=== PATIENT | female | born 1970 | race Caucasian/White ===

== ENCOUNTER 2018-10-03 10:53 | Outpatient (CLI) | payer MEDICARE ==
[2018-10-03 19:39] LABS: BASOPHILS # (AUTO) 0.1 10^3/uL (0.0-0.1); BASOPHILS % (AUTO) 0.6 %; EOSINOPHILS # (AUTO) 0.1 10^3/uL (0.0-0.7); EOSINOPHILS % (AUTO) 0.8 %; HGB - HEMOGLOBIN 13.1 g/dL (12.0-16.0); LYMPHOCYTES # (AUTO) 2.5 10^3/uL (1.5-3.5); LYMPHOCYTES % (AUTO) 16.1 %; MEAN CORPUSCULAR HEMOGLOBIN 26.8 pg (27.0-31.0); MEAN CORPUSCULAR HGB CONC 31.7 g/dL (32.0-36.0); MEAN CORPUSCULAR VOLUME 84.6 fL (81.0-99.0); MEAN PLATELET VOLUME 8.3 fL (7.9-10.8); MONOCYTES % (AUTO) 6.5 %; PLT - PLATELET COUNT 356 10^3/uL (130-450); RED BLOOD COUNT 4.89 10^6/uL (4.20-5.40); RED CELL DISTRIBUTION WIDTH 16.2 % (12.0-15.0); WHITE BLOOD COUNT 15.8 x10^3/uL (4.8-10.8)
[2018-10-03 19:53] LABS: PLATELET ESTIMATE, MANUAL NORMAL (130-450,000) (NORMAL); PLATELET MORPHOLOGY NORMAL APPEARANCE (NORMAL)
[2018-10-03 19:54] LABS: RBC MORPHOLOGY (MULTIPLE) 1+ ANISOCYTOSIS (NORMAL)
[2018-10-03 19:58] LABS: ALBUMIN 4.7 g/dL (3.2-5.5); ALBUMIN/GLOBULIN RATIO 1.1 (1.0-2.2); BILIRUBIN,TOTAL 0.8 mg/dL (0.2-1.0); CALCIUM 9.7 mg/dL (8.5-10.3); CREATININE 0.9 mg/dL (0.4-1.0)
[2018-10-03 20:06] LABS: FERRITIN 123.3 ng/mL (11.0-306.8)
[2018-10-03 20:59] LABS: HB2 TOTAL 14.5 g/dL; HEMOGLOBIN A1C 0.5 g/dL; HEMOGLOBIN A1C % 5.3 % (4.6-6.2)
== END 2018-10-03 23:59 | disposition home or self-care (01) ==
LOC: LAB.WCP 10:53
PROVIDERS: ATTEND Physician Assistant
DX: Z00.00 Encounter for general adult medical examination without abnormal findings (principal); K51.90 Ulcerative colitis, unspecified, without complications; D64.9 Anemia, unspecified; D50.9 Iron deficiency anemia, unspecified
CPT/HCPCS: 36415; 80053; 82607; 82728; 82746; 83036; 83540; 84466; 85025

== ENCOUNTER 2018-10-31 08:00 | Outpatient (CLI) | payer MEDICARE, MEDICAID ==
[2018-10-31 18:42] LABS: BASOPHILS # (AUTO) 0.1 10^3/uL (0.0-0.1); BASOPHILS % (AUTO) 0.4 %; EOSINOPHILS # (AUTO) 0.1 10^3/uL (0.0-0.7); EOSINOPHILS % (AUTO) 0.4 %; HGB - HEMOGLOBIN 14.3 g/dL (12.0-16.0); LYMPHOCYTES # (AUTO) 2.2 10^3/uL (1.5-3.5); LYMPHOCYTES % (AUTO) 13.9 %; MEAN CORPUSCULAR HEMOGLOBIN 26.6 pg (27.0-31.0); MEAN CORPUSCULAR HGB CONC 31.7 g/dL (32.0-36.0); MEAN CORPUSCULAR VOLUME 83.9 fL (81.0-99.0); MEAN PLATELET VOLUME 7.8 fL (7.9-10.8); NEUTROPHILS # (AUTO) 12.8 10^3/uL (1.5-6.6); NEUTROPHILS % (AUTO) 79.3 %; PLT - PLATELET COUNT 425 10^3/uL (130-450); RED BLOOD COUNT 5.36 10^6/uL (4.20-5.40); RED CELL DISTRIBUTION WIDTH 15.6 % (12.0-15.0); WHITE BLOOD COUNT 16.1 x10^3/uL (4.8-10.8)
[2018-10-31 19:15] LABS: ALBUMIN 5.1 g/dL (3.2-5.5); ALBUMIN/GLOBULIN RATIO 1.2 (1.0-2.2); BILIRUBIN,TOTAL 0.7 mg/dL (0.2-1.0); CREATININE 1.1 mg/dL (0.4-1.0); TOTAL PROTEIN 9.3 g/dL (6.7-8.2)
== END 2018-10-31 23:59 | disposition home or self-care (01) ==
LOC: LAB.WCP 08:00
PROVIDERS: ATTEND Physician Assistant
DX: E87.6 Hypokalemia (principal); K92.1 Melena
CPT/HCPCS: 36415; 80053; 85025

== ENCOUNTER 2018-11-01 02:37 | Outpatient (CLI) | payer MEDICARE, MEDICAID | END 2018-11-01 02:38 | disposition critical access hospital (66) | LOC: EMS 02:37 | PROVIDERS: ATTEND Surgery | DX: R55 Syncope and collapse (principal); S09.90XA Unspecified injury of head, initial encounter; R11.2 Nausea with vomiting, unspecified; R19.7 Diarrhea, unspecified; W18.30XA Fall on same level, unspecified, initial encounter; Y92.003 Bedroom of unspecified non-institutional (private) residence as the place of occurrence of the external cause | CPT/HCPCS: A0425; A0427 ==

== ENCOUNTER 2018-11-01 02:53 | Observation (INO) | payer MEDICARE, MEDICAID ==
[2018-11-01] MEDS ORDERED: TETANUS/DIPHTHERIA/PERTUSSIS 0.5 ML SYRINGE IM ONE (03:04)
[2018-11-01] MEDS ORDERED: SODIUM CHLORIDE 0.9% IV STA (03:04)
[2018-11-01] MEDS ORDERED: ONDANSETRON 4 MG/2 ML VIAL IVP STA (03:18)
[2018-11-01 03:35] LABS: BASOPHILS # (AUTO) 0.1 10^3/uL (0.0-0.1); BASOPHILS % (AUTO) 0.5 %; EOSINOPHILS # (AUTO) 0.1 10^3/uL (0.0-0.7); EOSINOPHILS % (AUTO) 0.5 %; HGB - HEMOGLOBIN 11.8 g/dL (12.0-16.0); LYMPHOCYTES # (AUTO) 2.3 10^3/uL (1.5-3.5); LYMPHOCYTES % (AUTO) 18.9 %; MEAN CORPUSCULAR HEMOGLOBIN 27.2 pg (27.0-31.0); MEAN CORPUSCULAR VOLUME 82.4 fL (81.0-99.0); MEAN PLATELET VOLUME 7.3 fL (7.9-10.8); MONOCYTES # (AUTO) 1.2 10^3/uL (0.0-1.0); MONOCYTES % (AUTO) 10.3 %; NEUTROPHILS # (AUTO) 8.4 10^3/uL (1.5-6.6); NEUTROPHILS % (AUTO) 69.8 %; PLT - PLATELET COUNT 258 10^3/uL (130-450); RED BLOOD COUNT 4.33 10^6/uL (4.20-5.40); RED CELL DISTRIBUTION WIDTH 15.4 % (12.0-15.0)
[2018-11-01 03:46] LABS: ALBUMIN 4.1 g/dL (3.2-5.5); ALBUMIN/GLOBULIN RATIO 1.2 (1.0-2.2); BILIRUBIN,TOTAL 0.6 mg/dL (0.2-1.0); CALCIUM 8.6 mg/dL (8.5-10.3); CREATININE 1.8 mg/dL (0.4-1.0); TOTAL PROTEIN 7.5 g/dL (6.7-8.2)
[2018-11-01] MEDS ORDERED: IOPAMIDOL-300 100 ML VIAL ONE (03:54)
[2018-11-01 04:04] LABS: BILIRUBIN,URINE NEGATIVE (NEGATIVE); GLUCOSE, URINE (UA) NEGATIVE (NEGATIVE); KETONES,URINE (UA) NEGATIVE (NEGATIVE); LEUKOCYTE ESTERASE, URINE NEGATIVE (NEGATIVE); NITRITE,URINE NEGATIVE (NEGATIVE); OCCULT BLOOD,URINE TRACE-LYSE (NEGATIVE); PROTEIN,URINE 30 mg/dL (NEGATIVE); UROBILINOGEN,URINE 0.2 (NORMAL) E.U./dL (NORMAL)
[2018-11-01] MEDS ORDERED: POTASSIUM CHLORIDE 20 MEQ TABLET PO STA (04:13)
[2018-11-01] MEDS ORDERED: MAGNESIUM SULFATE 2 GRAM 2 GM/50 ML BAG IV ONE (04:14)
[2018-11-01 04:16] LABS: BACTERIA,URINE Moderate /HPF (None Seen); CLARITY,URINE SL. CLOUDY (CLEAR); SQUAMOUS EPITHELIAL CELL,UR MANY Squamous (<= Few)
[2018-11-01] MEDS ORDERED: SODIUM CHLORIDE 0.9% 1,000 ML IV ONE (04:37)
--- NOTE | 2018-11-01 04:51 | XRAY Report ---
Reason: sepsis Procedure Date: 11/01/2018 Accession Number: [id number] / [id number] Procedure: XR - Chest 1 View X-Ray CPT Code: 07584 FULL RESULT: EXAM: CHEST RADIOGRAPHY EXAM DATE: 11/01/2018 04:10 AM. CLINICAL HISTORY: Sepsis. COMPARISON: None. TECHNIQUE: 1 view. FINDINGS: Lungs/Pleura: No focal opacities evident. No pleural effusion. No pneumothorax. Mediastinum: Within exam limitations, the cardiomediastinal contour is normal. Other: Port-A-Cath is noted in the left with the tip in this. Vena cava. IMPRESSION: 1. No acute infiltrates. RADIA
--- NOTE | 2018-11-01 04:53 | CT Report ---
Reason: Abd pain, sepsis Procedure Date: 11/01/2018 Accession Number: [id number] / [id number] Procedure: CT - Abdomen/Pelvis WO CPT Code: FULL RESULT: EXAM: CT ABDOMEN AND PELVIS (CT KUB) EXAM DATE: 11/01/2018 04:36 AM. CLINICAL HISTORY: Abd pain, sepsis. COMPARISONS: None. TECHNIQUE: Routine axial helical CT imaging was performed through the abdomen and pelvis without IV contrast. Reconstructions: Coronal and sagittal. In accordance with CT protocol optimization, one or more of the following dose reduction techniques were utilized for this exam: automated exposure control, adjustment of mA and/or KV based on patient size, or use of iterative reconstructive technique. FINDINGS: Lung Bases: There are minimal interstitial infiltrative changes at the lung bases. Right Kidney/Ureter: No stones, hydronephrosis, or hydroureter. No perinephric fat stranding. Left Kidney/Ureter: No stones, hydronephrosis, or hydroureter. No perinephric fat stranding. Other Solid Organs: Noncontrast images of the solid organs are grossly unremarkable. Gallbladder/Bile Ducts: Resected Peritoneal Cavity: No free fluid, free air or scarlett adenopathy. Bowel is grossly unremarkable. Pelvic Organs: The bladder is decompressed. There are no inflammatory changes of the colon. Vasculature: Unremarkable. Other: None. IMPRESSION: 1. No evidence for fluid collections nor abscesses within the abdomen and pelvis. 2. Prior cholecystectomy. 3. Minimal interstitial infiltrative changes at the lung bases. RADIA
--- NOTE | 2018-11-01 04:53 | CT Report ---
Reason: Syncope w head lac Procedure Date: 11/01/2018 Accession Number: [id number] / [id number] Procedure: CT - HEAD WO CPT Code: FULL RESULT: EXAM: CT HEAD EXAM DATE: 11/01/2018 04:34 AM. CLINICAL HISTORY: Syncope. Fall with head laceration. COMPARISON: None. TECHNIQUE: Multiaxial CT images were obtained from the foramen magnum to the vertex. Reformats: Sagittal and coronal. IV contrast: None. In accordance with CT protocol optimization, one or more of the following dose reduction techniques were utilized for this exam: automated exposure control, adjustment of mA and/or KV based on patient size, or use of iterative reconstructive technique. FINDINGS: Parenchyma: No intraparenchymal hemorrhage. No evidence of mass, midline shift, or CT findings of infarction. Watts-white differentiation is distinct. Extraaxial Spaces: Normal for age. No subdural or epidural collections identified. Ventricles: Normal in size and position. Sinuses and Orbits: Imaged paranasal sinuses, orbits, and mastoids show no significant abnormality. Bones: No evidence of fracture or calvarial defect. Other: Skin yuliana over the left parietal convexity. IMPRESSION: No acute or focal intracranial abnormality. RADIA
--- NOTE | 2018-11-01 05:04 | ED Physician Documentation ---
PD HPI SYNCOPE - Stated complaint Stated Complaint: SYNCOPAL FALL/HEAD INJURY - Chief complaint Chief Complaint: Trauma Hd/Nk - History obtained from History obtained from: Patient - History of Present Illness Witnessed: Unwitnessed Timing - onset: How many hours ago (1) Duration: Seconds Preceding symptoms: Unknown Associated symptoms: No: Chest pain, Palpitations Contributing factors: Decreased PO intake, Other (diarrhea) Injury occurred: Head injury Pain level max: 2 Pain level now: 2 Severity Comments: mild Review of Systems Ten Systems: 10 systems reviewed and negative Constitutional: reports: Reviewed and negative Eyes: reports: Reviewed and negative Ears: reports: Reviewed and negative Nose: reports: Reviewed and negative Throat: reports: Reviewed and negative Cardiac: reports: Reviewed and negative Respiratory: reports: Reviewed and negative GI: reports: Diarrhea : reports: Reviewed and negative Skin: reports: Reviewed and negative Musculoskeletal: reports: Reviewed and negative Neurologic: reports: Syncope Psychiatric: reports: Reviewed and negative Endocrine: reports: Reviewed and negative Immunocompromised: reports: Reviewed and negative PD PAST MEDICAL HISTORY - Past Medical History Past Medical History: Yes Cardiovascular: High cholesterol, Other Respiratory: Asthma Neuro: Seizure disorder Endocrine/Autoimmune: None GI: None BUNDLE PERSON: None : None HEENT: None Psych: None Musculoskeletal: None Derm: None - Past Surgical History Past Surgical History: Yes General: Cholecystectomy Ortho: Other /BUNDLE PERSON: section, Hysterectomy - Present Medications Home Medications: Ambulatory Orders Medication Instructions Recorded Confirmed Allopurinol 11/01/18 Famotidine [Pepcid] 11/01/18 Levetiracetam [Keppra] 11/01/18 Pantoprazole Sodium [Protonix] 11/01/18 Prazosin [Minipress] 11/01/18 Rosuvastatin Calcium 11/01/18 predniSONE [Prednisone] 11/01/18 - Allergies Allergies/Adverse Reactions: Allergies Allergy/AdvReac Type Severity Reaction Status Date / Time ciprofloxacin [From Cipro] AdvReac Unknown Verified 11/01/18 03:07 duloxetine AdvReac Anaphylaxis Verified 11/01/18 03:07 pravastatin AdvReac Cramps Verified 11/01/18 03:07 Sulfa (Sulfonamide AdvReac Cramps Verified 11/01/18 03:07 Antibiotics) - Social History Does the pt smoke?: No Smoking Status: Never smoker Does the pt drink ETOH?: No Does the pt have substance abuse?: No - Family History Family history: reports: Other (Reviewed and not pertinent) - Immunizations Immunizations are current?: Yes - POLST Patient has POLST: No PD ED PE NORMAL - Vitals Vital signs reviewed: Yes - General General: Alert and oriented X 3, No acute distress - HEENT HEENT: PERRL - Neck Neck: Supple, no meningeal sign - Cardiac Cardiac: RRR, No murmur - Respiratory Respiratory: Clear bilaterally - Abdomen Abdomen: Normal bowel sounds, Soft, Non tender, Non distended - Derm Derm: Warm and dry - Extremities Extremities: No deformity - Neuro Neuro: Alert and oriented X 3 - Psych Psych: Normal mood, Normal affect Results - Vitals Vitals: Vital Signs - 24 hr 11/01/18 11/01/18 11/01/18 03:00 03:30 03:46 Temperature 35.5 C L Heart Rate 87 92 91 Respiratory 16 16 17 Rate Blood Pressure 83/41 L 56/43 L 79/51 L O2 Saturation 97 98 95 11/01/18 11/01/18 11/01/18 03:53 04:40 05:03 Temperature Heart Rate 84 77 78 Respiratory Rate Blood Pressure 78/52 L 92/50 L 84/60 L O2 Saturation 96 100 100 Oxygen O2 Source Nasal cannula Oxygen Flow Rate 2 - Labs Labs: Laboratory Tests 11/01/18 11/01/18 11/01/18 03:23 03:25 03:25 WBC 12.0 H RBC 4.33 Hgb 11.8 L Hct 35.7 L MCV 82.4 MCH 27.2 MCHC 33.0 RDW 15.4 H Plt Count 258 MPV 7.3 L Neut # (Auto) 8.4 H Lymph # (Auto) 2.3 [place] # (Auto) 1.2 H Eos # (Auto) 0.1 Baso # (Auto) 0.1 Absolute Nucleated RBC 0.00 Nucleated RBC % 0.0 Sodium 135 Potassium 3.2 L Chloride 99 L Carbon Dioxide 24 Anion Gap 12.0 BUN 26 H Creatinine 1.8 H Estimated GFR (MDRD) 30 L Glucose 122 H Lactic Acid 1.4 Calcium 8.6 Total Bilirubin 0.6 AST 24 ALT 13 Alkaline Phosphatase 62 Total Protein 7.5 Albumin 4.1 Globulin 3.4 Albumin/Globulin Ratio 1.2 Lipase 47 Urine Color Urine Clarity Urine pH Ur Specific [place] Urine Protein Urine Glucose (UA) Urine Ketones Urine Occult Blood Urine Nitrite Urine Bilirubin Urine Urobilinogen Ur Leukocyte Esterase Urine RBC Urine WBC Ur Squamous Epith Cells Urine Bacteria Urine Culture Comments Influenza A (Rapid) Influenza B (Rapid) 11/01/18 11/01/18 03:35 03:40 WBC RBC Hgb Hct MCV MCH MCHC RDW Plt Count MPV Neut # (Auto) Lymph # (Auto) [place] # (Auto) Eos # (Auto) Baso # (Auto) Absolute Nucleated RBC Nucleated RBC % Sodium Potassium Chloride Carbon Dioxide Anion Gap BUN Creatinine Estimated GFR (MDRD) Glucose Lactic Acid Calcium Total Bilirubin AST ALT Alkaline Phosphatase Total Protein Albumin Globulin Albumin/Globulin Ratio Lipase Urine Color YELLOW Urine Clarity SL. CLOUDY Urine pH 6.0 Ur Specific [place] >=1.030 H Urine Protein 30 H Urine Glucose (UA) NEGATIVE Urine Ketones NEGATIVE Urine Occult Blood TRACE-LYSE Urine Nitrite NEGATIVE Urine Bilirubin NEGATIVE Urine Urobilinogen 0.2 (NORMAL) Ur Leukocyte Esterase NEGATIVE Urine RBC 11-25 H Urine WBC 0-3 Ur Squamous Epith Cells MANY Squamous H Urine Bacteria Moderate H Urine Culture Comments NOT INDICATED Influenza A (Rapid) Negative Influenza B (Rapid) Negative - Rads (name of study) CT HEAd Radiology: Final report received, Other (WNL) CT ABD PELVIS Radiology: Final report received, Other (WNL) Chest Radiology: Final report received, Other (WNL) Procedures - Laceration (location) Scalp Length in cm: 2 Wound type: Linear Neurovascular status: Sensory intact, Vascular intact Tendon involvement: Tendon intact Wound Preparation: Irrigated copiously NS Skin layer closure: [place] Other: Patient tolerated well Complexity: Simple PD MEDICAL DECISION MAKING - ED course Complexity details: reviewed results, re-evaluated patient, considered differential, d/w patient ED course: 48-year-old female with 1-2 days of diarrhea presents after a syncopal episode. Patient was orthostatic and hypotensive which improved with IV fluid resuscitation. Kidney function was twice normal. CT had and abdomen unremarkable. Patient admitted for acute kidney injury. Departure - Departure Disposition: ED Place in Observation Clinical Impression: Acute kidney injury, Dehydration Syncope Qualifiers: Syncope type: unspecified Qualified Code(s): R55 - Syncope and collapse
--- NOTE | 2018-11-01 05:13 | HISTORY & PHYSICAL EXAMINATION ---
Chief Complaint - Chief Complaint Chief Complaint: syncope and collapse Stroke/TIA/Neuro Template - Admitted From Admitted from: ED - History Obtained From Records Reviewed: RN notes reviewed History obtained from: Patient Exam limitations: No limitations - History of Present Illness HPI Comment/Other: Pleasant 48 y/o female with hx a seizure disorder, Adrenal insufficiency sec to chronic steroid use, crohn's disease, obesity, CKD stage 2, asthma who p/w diarrhea for 2 days with associated weakness, had a syncopal event with laceration to back of her head while walking back from bathroom at home. Patient states that she has been having 3 times to 4 times per day loose watery stools nonbloody for the past 2 days which she attributes to her Crohn's flare which usually happens 1-2 times per month. Patient has been on chronic steroids since July 2018 and was on a maintenance dose of 5 mg p.o. daily. Patient states that her normal blood pressure ranges systolic in the 90s to 100s. Neuroimaging is neg, CT abd/pelvis shows no acute pathology, labs revealed hypokalemia and PORTER with severe hypotension on presentation as low as 56/43. Cr 1.8 with a baseline of 0.9-1.0, K 3.2, Flu was neg., UA showed 11-25 rbc's,mod bacteria, squamous cells with evidence of contamination. Mild anemia NC/NC noted without any hx of abdominal pain, hematemesis, hematochezia, dysuria, flank pain, joint swelling, or MP rash. Patient responded to IVF resuscitation with improved BP's. Laceration to back of head was repaired in ED. Patient states that she was hospitalized in [facility] on 07/26 for adrenal insufficiency and spent 5 days in the hospital. In addition patient was placed on Keppra for her seizure disorder however never diagnosed with epilepsy her primary neurologist who believes she last saw in [place] but now has moved to the [place] and has no establish care. Patient does have a Port-A-Cath due to poor vascular IV access as she has been hospitalized for Adrenal insufficiency as well as C katelynn's flares. In addition patient did have history of bowel perforation with sepsis in 2010. PMH/PSH - Past Medical History Cardiovascular: positive: High cholesterol, Other Respiratory: positive: Asthma Neuro: positive: Seizure disorder Endocrine/Autoimmune: positive: None GI: positive: None COMPLIANCE REPRESENTATIVE DEALER: positive: None : positive: None HEENT: positive: None Psych: positive: None Musculoskeletal: positive: None Derm: positive: None MRSA Hx?: No - Past Surgical History General: positive: Cholecystectomy Ortho: positive: Other /COMPLIANCE REPRESENTATIVE DEALER: positive: section, Hysterectomy Social & Family Hx - Social History Does the pt smoke?: No Smoking Status: Never smoker Does the pt drink ETOH?: No Does the pt have substance abuse?: No - POLST Patient has POLST: No Meds/Allgy - Home Medications Home Medications: Ambulatory Orders Medication Instructions Recorded Confirmed Allopurinol 11/01/18 Famotidine [Pepcid] 11/01/18 Levetiracetam [Keppra] 11/01/18 Pantoprazole Sodium [Protonix] 11/01/18 Prazosin [Minipress] 11/01/18 Rosuvastatin Calcium 11/01/18 predniSONE [Prednisone] 11/01/18 - Allergies Allergies/Adverse Reactions: Allergies Allergy/AdvReac Type Severity Reaction Status Date / Time ciprofloxacin [From Cipro] AdvReac Unknown Verified 11/01/18 03:07 duloxetine AdvReac Anaphylaxis Verified 11/01/18 03:07 pravastatin AdvReac Cramps Verified 11/01/18 03:07 Sulfa (Sulfonamide AdvReac Cramps Verified 11/01/18 03:07 Antibiotics) Review of Systems - All Other Systems All Other Systems: reports: Reviewed and negative Prior Level of Functionality: Patient is independent with home ADL's Exam - Vital Signs Vital Signs: Vital Signs x48h Temp Pulse Resp BP Pulse Ox 11/01/18 05:03 78 84/60 L 100 11/01/18 04:40 77 92/50 L 100 11/01/18 03:53 84 78/52 L 96 11/01/18 03:46 91 17 79/51 L 95 11/01/18 03:30 92 16 56/43 L 98 11/01/18 03:00 35.5 C L 87 16 83/41 L 97 - Physical Exam General Appearance: positive: No acute distress, Alert, Other (Patient is chronically ill-appearing, with schwab facies.) Eyes Bilateral: positive: Normal inspection, PERRL, EOMI, Conjunctivae nml ENT: positive: ENT inspection nml, Pharynx nml, Dry mucous membranes. negative: Oral lesions Neck: positive: Nml inspection, Thyroid nml, No JVD, Trachea midline. negative: Thyromegaly Respiratory: positive: Chest non-tender, No respiratory distress, Breath sounds nml Cardiovascular: positive: Regular rate & rhythm, No murmur, No gallop. negative: Irregularly irregular, JVD present Peripheral Pulses: positive: 2+ Abdomen: positive: Non-tender, No organomegaly, Nml bowel sounds, No distention. negative: Tenderness Back: positive: Nml inspection Skin: positive: Color nml, No rash, Warm Extremities: positive: Non-tender, Full ROM, Nml appearance Neurologic/Psychiatric: positive: Oriented x3, CN's nml (2-12), Weakness Results - Lab Results Lab results reviewed: Yes Fish Bones: 11/01/18 03:25 11/01/18 03:23 Other Lab Results: Lab Results x24hrs 11/01/18 11/01/18 11/01/18 Range/Units 03:40 03:35 03:25 WBC 12.0 H (4.8-10.8) x10^3/uL RBC 4.33 (4.20-5.40) 10^6/uL Hgb 11.8 L (12.0-16.0) g/dL Hct 35.7 L (37.0-47.0) % MCV 82.4 (81.0-99.0) fL MCH 27.2 (27.0-31.0) pg MCHC 33.0 (32.0-36.0) g/dL RDW 15.4 H (12.0-15.0) % Plt Count 258 (130-450) 10^3/uL MPV 7.3 L (7.9-10.8) fL Neut # (Auto) 8.4 H (1.5-6.6) 10^3/uL Lymph # (Auto) 2.3 (1.5-3.5) 10^3/uL [place] # (Auto) 1.2 H (0.0-1.0) 10^3/uL Eos # (Auto) 0.1 (0.0-0.7) 10^3/uL Baso # (Auto) 0.1 (0.0-0.1) 10^3/uL Absolute Nucleated RBC 0.00 x10^3/uL Nucleated RBC % 0.0 /100WBC Sodium (135-145) mmol/L Potassium (3.5-5.0) mmol/L Chloride (101-111) mmol/L Carbon Dioxide (21-32) mmol/L Anion Gap (6-13) BUN (6-20) mg/dL Creatinine (0.4-1.0) mg/dL Estimated GFR (MDRD) (>89) Glucose (70-100) mg/dL Lactic Acid (0.5-2.2) mmol/L Calcium (8.5-10.3) mg/dL Total Bilirubin (0.2-1.0) mg/dL AST (10-42) IU/L ALT (10-60) IU/L Alkaline Phosphatase (42-121) IU/L Total Protein (6.7-8.2) g/dL Albumin (3.2-5.5) g/dL Globulin (2.1-4.2) g/dL Albumin/Globulin Ratio (1.0-2.2) Lipase (22-51) U/L Urine Color YELLOW Urine Clarity SL. CLOUDY (CLEAR) Urine pH 6.0 (5.0-7.5) PH Ur Specific [place] >=1.030 H (1.002-1.030) Urine Protein 30 H (NEGATIVE) mg/dL Urine Glucose (UA) NEGATIVE (NEGATIVE) mg/dL Urine Ketones NEGATIVE (NEGATIVE) mg/dL Urine Occult Blood TRACE-LYSE (NEGATIVE) Urine Nitrite NEGATIVE (NEGATIVE) Urine Bilirubin NEGATIVE (NEGATIVE) Urine Urobilinogen 0.2 (NORMAL) (NORMAL) E.U./dL Ur Leukocyte Esterase NEGATIVE (NEGATIVE) Urine RBC 11-25 H (0-5) /HPF Urine WBC 0-3 (0-5) /HPF Ur Squamous Epith Cells MANY Squamous H (<= Few) Urine Bacteria Moderate H (None Seen) /HPF Urine Culture Comments NOT INDICATED Influenza A (Rapid) Negative (Negative) Influenza B (Rapid) Negative (Negative) 11/01/18 11/01/18 Range/Units 03:25 03:23 WBC (4.8-10.8) x10^3/uL RBC (4.20-5.40) 10^6/uL Hgb (12.0-16.0) g/dL Hct (37.0-47.0) % MCV (81.0-99.0) fL MCH (27.0-31.0) pg MCHC (32.0-36.0) g/dL RDW (12.0-15.0) % Plt Count (130-450) 10^3/uL MPV (7.9-10.8) fL Neut # (Auto) (1.5-6.6) 10^3/uL Lymph # (Auto) (1.5-3.5) 10^3/uL [place] # (Auto) (0.0-1.0) 10^3/uL Eos # (Auto) (0.0-0.7) 10^3/uL Baso # (Auto) (0.0-0.1) 10^3/uL Absolute Nucleated RBC x10^3/uL Nucleated RBC % /100WBC Sodium 135 (135-145) mmol/L Potassium 3.2 L (3.5-5.0) mmol/L Chloride 99 L (101-111) mmol/L Carbon Dioxide 24 (21-32) mmol/L Anion Gap 12.0 (6-13) BUN 26 H (6-20) mg/dL Creatinine 1.8 H (0.4-1.0) mg/dL Estimated GFR (MDRD) 30 L (>89) Glucose 122 H (70-100) mg/dL Lactic Acid 1.4 (0.5-2.2) mmol/L Calcium 8.6 (8.5-10.3) mg/dL Total Bilirubin 0.6 (0.2-1.0) mg/dL AST 24 (10-42) IU/L ALT 13 (10-60) IU/L Alkaline Phosphatase 62 (42-121) IU/L Total Protein 7.5 (6.7-8.2) g/dL Albumin 4.1 (3.2-5.5) g/dL Globulin 3.4 (2.1-4.2) g/dL Albumin/Globulin Ratio 1.2 (1.0-2.2) Lipase 47 (22-51) U/L Urine Color Urine Clarity (CLEAR) Urine pH (5.0-7.5) PH Ur Specific [place] (1.002-1.030) Urine Protein (NEGATIVE) mg/dL Urine Glucose (UA) (NEGATIVE) mg/dL Urine Ketones (NEGATIVE) mg/dL Urine Occult Blood (NEGATIVE) Urine Nitrite (NEGATIVE) Urine Bilirubin (NEGATIVE) Urine Urobilinogen (NORMAL) E.U./dL Ur Leukocyte Esterase (NEGATIVE) Urine RBC (0-5) /HPF Urine WBC (0-5) /HPF Ur Squamous Epith Cells (<= Few) Urine Bacteria (None Seen) /HPF Urine Culture Comments Influenza A (Rapid) (Negative) Influenza B (Rapid) (Negative) - Diagnostic Imaging Results Diagnostic Imaging Results: positive: Final report reviewed - EKG Results EKG Interpreted Independently: No Sepsis Event Note (H) - Evaluation Current Stage of Sepsis: Ruled out (hypotension and elevated WBC related to Crohn's flair with severe dehydration) Impression/Plan - Problem List Problem List: Assessment 1. SIRS 2. Acute recurrent adrenal insufficiency 3. Syncope and collapse secondary #2 4. PORTER/CKD stage 2 secondary to severe dehydration, hypotension #2 5. Hypokalemia secondary to GI losses 6. Acute Crohn's disease exacerbation 7. Hypovolemia 8. Generalized weakness 9. Hx Seizure disorder 10. Posterior head laceration s/p repair Plan: Patient meets SIRS criteria however I believe diarrhea with associated hypovolemia and symptomatic hypotension for which patient had a syncopal event and collapse is related with adrenal insufficiency and poor perfusion of kidneys precipitating a prerenal azotemia PORTER. Patient currently is on LR at 250 mL/HR to continue via port-a-cath maricruz to poor vascular access. Patient will get be given Solu-Medrol 125 mg IV x1 as I believe that patient is having an adrenal insufficiency type episode/crisis. Cortisol level will be drawn. Would place on Midodrine 10 mg p.o. 3 times daily otherwise patient is hemodynamically stable with no fevers or abdominal pain. CT abdomen pelvis as well as CT head did not show acute pathology. UA was contaminated with squamous cells. Lactic acid was essentially unremarkable at 1.4. Patient has chronic kidney disease stage II were baseline ranges from 0.9-1.0 and UA shows evidence of chronicity with 3+ proteinuria. Patient's leukocytosis likely due to patient's prednisone with chronic immunosuppression and steroid use as of July 2018 for which patient was previously hospitalized for adrenal insufficiency. Patient is on Keppra to resume after keppra level drawn, as well as Crestor however will obtain CK level prior to starting a statin. Patient also was on prazosin on her home medication this will be held due to current hypovolemia/hypotensive state. Patient with asthma deemed to be allergic however currently on 2 L nasal cannula and not actively wheezing. Patient has a history of hyperlipidemia and again statin will be restarted once this is confirmed on her home medication list and a CK level is drawn. C. difficile, H. pylori and stool cultures will be obtained due to patient's diarrhea which is currently 3 times to 4 times per day for the last 2 days. Lactobacillus to replace GI sachin. Insensible GIs losses noted with hypokalemia and dehydrated state. Patient had a laceration to the back of her head which was now repaired. Initiate DVT prophylaxis with SCD boots only as well as GI prophylaxis with Pepcid IV. Code Status: FULL code Core Measures - Anticipated LOS I expect patient to be DC'd or transferred within 96 hours.: Yes - Issues Hospital Issues and Management Plan: Fluids, med mgmt - DVT/VTE - Prophylaxis VTE/DVT Device ordered at admit?: Yes VTE/DVT Prophylaxis med ordered at admit?: No Not Ordered - Medical Reason: Not indicated - Stroke - Rehab Assessment Rehab services assessment to be ordered?: No Not Ordered - Medical Reason: Not indicated - AMI - Statin at Admit Aspirin Prescribed on Admit: No Not Ordered - Medical Reason: Not indicated
[2018-11-01] MEDS ORDERED: MIDODRINE 2.5 MG TABLET PO PRN (05:19)
[2018-11-01] MEDS ORDERED: SODIUM CHLORIDE FLUSH 0.9% 10 ML SYRINGE IVP PRN (05:20)
[2018-11-01] MEDS ORDERED: ONDANSETRON ODT 4 MG TABLET TL PRN (05:20)
[2018-11-01] MEDS ORDERED: ACETAMINOPHEN 325 MG TABLET PO PRN (05:20)
[2018-11-01] MEDS ORDERED: methylPREDNISolone SUCCINATE 125 MG/2 ML VIAL IVP STA (05:32)
[2018-11-01] MEDS: LACTATED RINGERS 1,000 ML IV SCH ×2 (07:45→12:08)
[2018-11-01] MEDS: HYDROcod/ACETAM 10 MG/325 MG TABLET PO PRN ×2 (08:03→13:36)
[2018-11-01] MEDS: MIDODRINE 2.5 MG TABLET PO SCH ×2 (08:03→13:45)
[2018-11-01] MEDS ORDERED: FAMOTIDINE 20 MG/2 ML VIAL IVP SCH ×2 (09:00)
[2018-11-01] MEDS ORDERED: POLYETHYLENE GLYCOL 3350 17 GM PACKET PO SCH (09:00)
[2018-11-01] MEDS ORDERED: cephALEXin 250 MG CAPSULE PO SCH ×2 (09:27→09:28)
[2018-11-01 09:45] LABS: T4 (THYROXINE) 10.85 ug/dL (6.09-12.23)
[2018-11-01 09:52] LABS: FREE T4 (FREE THYROXINE) 1.04 ng/dL (0.58-1.64)
[2018-11-01] MEDS: SODIUM CHLORIDE FLUSH 0.9% 10 ML SYRINGE IVP SCH ×2 (10:13→17:02)
[2018-11-01] MEDS ORDERED: CALCIUM CARBONATE CHEW 500 MG TABLET PO SCH (11:00)
[2018-11-01] MEDS ORDERED: CHOLECALCIFEROL 1,000 UNIT TABLET PO SCH (11:00)
[2018-11-01] MEDS ORDERED: WHEAT DEXTRIN POWDER PACKET PO PRN (11:45)
[2018-11-01] MEDS: SACCHAROMYCES BOULARDII 250 MG CAPSULE PO SCH ×2 (13:35→17:16)
[2018-11-01 15:08] LABS: CALCIUM 8.3 mg/dL (8.5-10.3)
[2018-11-01 16:02] VITALS: BP 147/81
--- NOTE | 2018-11-01 16:16 | Discharge Plan ---
Discharge Plan Disposition: Home, Self Care Condition: Poor Prescriptions: cephALEXin [Keflex] 500 mg PO BID #14 capsule Saccharomyces Boulardii [Florastor] 250 mg PO DAILY #7 capsule Diet: Regular Activity Restrictions: Activity as Tolerated Shower Restrictions: No (fall precaution, caregiver closely monitor) Instruction Topics: Cephalexin tablets or capsules, Diarrhea, Pneumonia, Syncope, Dehydration Additional Instructions or Follow Up instructions: you may followup your PCP in one week, followup your church secretary and clinic lead as your out-pt. You were found moderate to severe dehydration, please keep hydration when you are in home. You were found to have minimal infection in your lung, Keflex is prescribed for you. Your ECHO study is unremarkable. Should your symptoms return or worsen, you may present ER or call 911 or your PCP for help. No Smoking: If you smoke, Please STOP! Call for help. Follow-up with: Yumiko Hurst PA [Primary Care Provider] -
--- NOTE | 2018-11-01 16:47 | DISCHARGE SUMMARY ---
Discharge Summary Discharge Date: 11/01/18 Discharging Provider: MARIEE Primary Care Provider: Ting Barreto Condition at Discharge: Poor Discharge Disposition: 01 Home, Self Care Discharge Facility Name: home - DIAGNOSES Admission Diagnoses: 1. pneumonia 2. Acute on chronic adrenal insufficiency 3. Syncope and collapse 4. Agnes 5. Hypokalemia secondary to GI losses 6. Crohn's disease 7. Generalized weakness 8. Hx Seizure disorder 9. Posterior head laceration s/p repair Discharge Diagnoses with Status of Each Condition: 1. pneumonia 2. Acute on chronic adrenal insufficiency 3. Syncope and collapse 4. Agnes 5. Hypokalemia secondary to GI losses 6. Crohn's disease 7. Generalized weakness 8. Hx Seizure disorder 9. Posterior head laceration s/p repair - HPI History of Present Illness: refer from Dr. Gary's HPI on 11/01/18 as the following: Pleasant 48 y/o female with hx a seizure disorder, Adrenal insufficiency sec to chronic steroid use, crohn's disease, obesity, CKD stage 2, asthma who p/w diarrhea for 2 days with associated weakness, had a syncopal event with laceration to back of her head while walking back from bathroom at home. Patient states that she has been having 3 times to 4 times per day loose watery stools nonbloody for the past 2 days which she attributes to her Crohn's flare which usually happens 1-2 times per month. Patient has been on chronic steroids since July 2018 and was on a maintenance dose of 5 mg p.o. daily. Patient states that her normal blood pressure ranges systolic in the 90s to 100s. Neuroimaging is neg, CT abd/pelvis shows no acute pathology, labs revealed hypokalemia and AGNES with severe hypotension on presentation as low as 56/43. Cr 1.8 with a baseline of 0.9-1.0, K 3.2, Flu was neg., UA showed 11-25 rbc's,mod bacteria, squamous cells with evidence of contamination. Mild anemia NC/NC noted without any hx of abdominal pain, hematemesis, hematochezia, dysuria, flank pain, joint swelling, or MP rash. Patient responded to IVF resuscitation with improved BP's. Laceration to back of head was repaired in ED. Patient states that she was hospitalized in [facility] on 07/26 for adrenal insufficiency and spent 5 days in the hospital. In addition patient was placed on Keppra for her seizure disorder however never diagnosed with epilepsy her primary neurologist who believes she last saw in [place] but now has moved to the [place] and has no establish care. Patient does have a Port-A-Cath due to poor vascular IV access as she has been hospitalized for Adrenal insufficiency as well as Crohn's flares. In addition patient did have history of bowel perforation with sepsis in 2010. - HOSPITAL COURSE Hospital Course: 1. pneumonia pt present cough with yellowish sputum, CT reveals infiltrate. after given antibiotics, pt has 97% on room air, pt has no fever, chill, no SOB. pt clinically is stable, walk by herself. 2. Acute on chronic adrenal insufficiency with hypotension resolved after hydration with normal BP, followup Heat Reader 3. Syncope and collapse ECHO is unremarkable, EKG is SR. it seems caused by severe dehydration 4. Agnes resolved 5. Hypokalemia secondary to GI losses resolved 6. Crohn's disease stable, followup GI 7. Generalized weakness resolved, pt walk by herself 8. Hx Seizure disorder stable 9. Posterior head laceration s/p repair CT of head is unremarkable, followup PCP to remove staple - ALLERGIES Allergies/Adverse Reactions: Allergies Allergy/AdvReac Type Severity Reaction Status Date / Time ciprofloxacin [From Cipro] AdvReac Unknown Verified 11/01/18 03:07 duloxetine AdvReac Anaphylaxis Verified 11/01/18 03:07 pravastatin AdvReac Cramps Verified 11/01/18 03:07 Sulfa (Sulfonamide AdvReac Cramps Verified 11/01/18 03:07 Antibiotics) - MEDICATIONS Home Medications: Ambulatory Orders Medication Instructions Recorded Confirmed Aspirin 81 mg PO DAILY 11/01/18 11/01/18 Cholecalciferol (Vitamin D3) 2,000 unit PO DAILY 11/01/18 11/01/18 [Vitamin D3] Cyanocobalamin (Vitamin B-12) 1,000 mcg PO DAILY 11/01/18 11/01/18 [Vitamin B-12] Famotidine [Pepcid] 20 mg PO BID PRN 11/01/18 11/01/18 Folic Acid 1 mg PO DAILY 11/01/18 11/01/18 Hydrocodone/Acetaminophen 1 tab PO Q8H PRN 11/01/18 11/01/18 [Hydrocodone-Acetamin 7.5-325] Levetiracetam [Keppra] 750 mg PO BID 11/01/18 11/01/18 Lisinopril 10 mg PO DAILY 11/01/18 11/01/18 Montelukast Sodium 10 mg PO DAILY 11/01/18 11/01/18 Nitroglycerin 0.4 mg SL PRN PRN 11/01/18 11/01/18 Ondansetron [Ondansetron Odt] 8 mg PO BID 11/01/18 11/01/18 Pantoprazole Sodium [Protonix] 20 mg PO BID 11/01/18 11/01/18 Potassium Chloride 20 meq PO DAILY 11/01/18 11/01/18 Prazosin [Minipress] 6 mg PO QPM 11/01/18 11/01/18 QUEtiapine [SEROquel] 100 mg PO BID 11/01/18 11/01/18 Rosuvastatin Calcium 20 mg PO QPM 11/01/18 11/01/18 Saccharomyces Boulardii [Florastor] 250 mg PO DAILY #7 capsule 11/01/18 Sertraline HCl 200 mg PO DAILY 11/01/18 11/01/18 cephALEXin [Keflex] 500 mg PO BID #14 capsule 11/01/18 diazePAM [Diazepam] 2.5 mg PO DAILY 11/01/18 11/01/18 predniSONE [Prednisone] 5 mg PO DAILY 11/01/18 11/01/18 - PHYSICAL EXAM AT DISCHARGE General Appearance: positive: No acute distress, Alert. negative: Lethargic Eyes Bilateral: positive: Normal inspection, PERRL, No lid inflammation, Conjunctivae nml ENT: positive: ENT inspection nml, Pharynx nml, No signs of dehydration. negative: Purulent nasal drainage, Pharyngeal erythema, Oral lesions Neck: positive: Nml inspection, Thyroid nml, No JVD, Trachea midline. negative: Thyromegaly, Lymphadenopathy (R), Lymphadenopathy (L), Stiff neck, Swelling/bruising, Tracheal deviation Respiratory: positive: Chest non-tender, No respiratory distress, Breath sounds nml. negative: Wheezes, Rales, Rhonchi Cardiovascular: positive: Regular rate & rhythm, No murmur, No gallop. negative: Irregularly irregular, Extrasystoles, Tachycardia, Bradycardia, JVD present, Systolic murmur, Diastolic murmur Peripheral Pulses: positive: 2+ Abdomen: positive: Non-tender, No organomegaly, Nml bowel sounds, No distention. negative: Tenderness, Guarding, Rebound Back: positive: Nml inspection. negative: CVA tenderness (R), CVA tenderness (L) Skin: positive: Color nml, No rash, Warm, Dry. negative: Cyanosis, Diaphoresis, Pallor Extremities: positive: Non-tender, Full ROM, Nml appearance. negative: Calf te nderness, Joint swelling, Elton's sign/cords Neurologic/Psychiatric: positive: Oriented x3, Sensation nml, Mood/affect nml. negative: Weakness, Sensory loss, Facial droop, Slurred/abnml speech, Depressed mood/affect - LABS Result Diagrams: 11/01/18 03:25 11/01/18 14:54 - SEPSIS Current Stage of Sepsis: Ruled out (hypotension and elevated WBC related to Crohn's flair with severe dehydration) - FOLLOW UP Follow Up: you may followup your PCP in one week, followup your research associate molecular biology and grappler as your out-pt. You were found moderate to severe dehydration, please keep hydration when you are in home. You were found to have minimal infection in your lung, Keflex is prescribed for you. Your ECHO study is unremarkable. Should your symptoms return or worsen, you may present ER or call 911 or your PCP for help. - TIME SPENT Time Spent in Discharge (Minutes): 55
[2018-11-02] MEDS ORDERED: DEXAMETHASONE 10 MG/ML VIAL IVP SCH (09:00)
== END 2018-11-01 17:30 | disposition home or self-care (01) ==
LOC: EDBD → EDUNIT# → ED 02:53 → OBS 05:20
PROVIDERS: ADMIT Family Medicine; ATTEND Nurse Practitioner Gerontology
DX: J18.9 Pneumonia, unspecified organism (principal); E27.3 Drug-induced adrenocortical insufficiency; R55 Syncope and collapse; N17.9 Acute kidney failure, unspecified; E87.6 Hypokalemia; K50.90 Crohn's disease, unspecified, without complications; G40.909 Epilepsy, unspecified, not intractable, without status epilepticus; E86.0 Dehydration; I95.9 Hypotension, unspecified; T38.0X5D Adverse effect of glucocorticoids and synthetic analogues, subsequent encounter; E66.9 Obesity, unspecified; Z68.34 Body mass index [BMI] 34.0-34.9, adult; N18.2 Chronic kidney disease, stage 2 (mild); S01.01XA Laceration without foreign body of scalp, initial encounter; W18.30XA Fall on same level, unspecified, initial encounter; Y92.002 Bathroom of unspecified non-institutional (private) residence as the place of occurrence of the external cause; D64.9 Anemia, unspecified; E78.5 Hyperlipidemia, unspecified; J45.909 Unspecified asthma, uncomplicated; Z79.51 Long term (current) use of inhaled steroids
CPT/HCPCS: 12001; 36415; 70450; 71045; 74176; 80048; 80177; 81001; 82533; 82550; 83605; 83690; 83735; 84436; 84439; 84484; 87040; 87275; 87276; 93005; 93306; 96361; 96365; 96375; 97161; 99283; 99284; A9270; G0378; J7120; Q0162; 80053; 84443; 85025; 87086; 87338

== ENCOUNTER 2018-11-07 14:26 | Outpatient (CLI) | payer MEDICARE, MEDICAID ==
[2018-11-07 18:57] LABS: ALBUMIN 4.9 g/dL (3.2-5.5); ALBUMIN/GLOBULIN RATIO 1.2 (1.0-2.2); BILIRUBIN,TOTAL 0.8 mg/dL (0.2-1.0); CALCIUM 10.1 mg/dL (8.5-10.3); CREATININE 0.8 mg/dL (0.4-1.0); TOTAL PROTEIN 9.1 g/dL (6.7-8.2)
[2018-11-07 19:11] LABS: BASOPHILS # (AUTO) 0.1 10^3/uL (0.0-0.1); BASOPHILS % (AUTO) 0.7 %; EOSINOPHILS # (AUTO) 0.1 10^3/uL (0.0-0.7); EOSINOPHILS % (AUTO) 0.5 %; HGB - HEMOGLOBIN 13.2 g/dL (12.0-16.0); LYMPHOCYTES # (AUTO) 1.4 10^3/uL (1.5-3.5); MEAN CORPUSCULAR HEMOGLOBIN 26.4 pg (27.0-31.0); MEAN CORPUSCULAR VOLUME 82.7 fL (81.0-99.0); MEAN PLATELET VOLUME 7.8 fL (7.9-10.8); MONOCYTES # (AUTO) 0.6 10^3/uL (0.0-1.0); MONOCYTES % (AUTO) 5.1 %; NEUTROPHILS % (AUTO) 80.7 %; PLT - PLATELET COUNT 289 10^3/uL (130-450); WHITE BLOOD COUNT 11.1 x10^3/uL (4.8-10.8)
== END 2018-11-07 23:59 | disposition home or self-care (01) ==
LOC: LAB.WCP 14:26
PROVIDERS: ATTEND Physician Assistant
DX: D64.9 Anemia, unspecified (principal)
CPT/HCPCS: 36415; 80053; 85025

== ENCOUNTER 2018-11-14 17:33 | Emergency (ER) | payer MEDICARE, MEDICAID ==
[2018-11-14 17:43] VITALS: BP 131/85
--- NOTE | 2018-11-14 18:20 | ED Physician Documentation ---
History of Present Illness - Stated complaint Stated Complaint: STAPLE REMOVAL - Chief complaint Chief Complaint: General - History obtained from History obtained from: Patient - History of Present Illness Timing: Other (She presents about 12 days after a scalp laceration for staple removal. No specific complaints.) Review of Systems Constitutional: denies: Fever, Chills Neurologic: denies: Syncope (not since prior admit) PD PAST MEDICAL HISTORY - Past Medical History Cardiovascular: High cholesterol, Other Respiratory: Asthma Neuro: Seizure disorder Endocrine/Autoimmune: None GI: None, Crohn's disease STUDENT DEVELOPMENT SPECIALIST: None : None HEENT: None Psych: None, Anxiety, Post traumatic stress disorder Musculoskeletal: None, Chronic back pain Derm: None - Past Surgical History Past Surgical History: Yes General: Cholecystectomy Ortho: Other /STUDENT DEVELOPMENT SPECIALIST: section, Hysterectomy - Present Medications Home Medications: Ambulatory Orders Medication Instructions Recorded Confirmed Aspirin 81 mg PO DAILY 11/01/18 11/01/18 Cholecalciferol (Vitamin D3) 2,000 unit PO DAILY 11/01/18 11/01/18 [Vitamin D3] Cyanocobalamin (Vitamin B-12) 1,000 mcg PO DAILY 11/01/18 11/01/18 [Vitamin B-12] Famotidine [Pepcid] 20 mg PO BID PRN 11/01/18 11/01/18 Folic Acid 1 mg PO DAILY 11/01/18 11/01/18 Hydrocodone/Acetaminophen 1 tab PO Q8H PRN 11/01/18 11/01/18 [Hydrocodone-Acetamin 7.5-325] Levetiracetam [Keppra] 750 mg PO BID 11/01/18 11/01/18 Lisinopril 10 mg PO DAILY 11/01/18 11/01/18 Montelukast Sodium 10 mg PO DAILY 11/01/18 11/01/18 Nitroglycerin 0.4 mg SL PRN PRN 11/01/18 11/01/18 Ondansetron [Ondansetron Odt] 8 mg PO BID 11/01/18 11/01/18 Pantoprazole Sodium [Protonix] 20 mg PO BID 11/01/18 11/01/18 Potassium Chloride 20 meq PO DAILY 11/01/18 11/01/18 Prazosin [Minipress] 6 mg PO QPM 11/01/18 11/01/18 QUEtiapine [SEROquel] 100 mg PO BID 11/01/18 11/01/18 Rosuvastatin Calcium 20 mg PO QPM 11/01/18 11/01/18 Saccharomyces Boulardii [Florastor] 250 mg PO DAILY #7 capsule 11/01/18 Sertraline HCl 200 mg PO DAILY 11/01/18 11/01/18 cephALEXin [Keflex] 500 mg PO BID #14 capsule 11/01/18 diazePAM [Diazepam] 2.5 mg PO DAILY 11/01/18 11/01/18 predniSONE [Prednisone] 5 mg PO DAILY 11/01/18 11/01/18 - Allergies Allergies/Adverse Reactions: Allergies Allergy/AdvReac Type Severity Reaction Status Date / Time ciprofloxacin [From Cipro] AdvReac Unknown Verified 11/14/18 17:43 duloxetine AdvReac Anaphylaxis Verified 11/14/18 17:43 pravastatin AdvReac Cramps Verified 11/14/18 17:43 Sulfa (Sulfonamide AdvReac Cramps Verified 11/14/18 17:43 Antibiotics) - Social History Does the pt smoke?: No Smoking Status: Former smoker Does the pt drink ETOH?: No Does the pt have substance abuse?: No - Immunizations Immunizations are current?: Yes - POLST Patient has POLST: No PD ED PE NORMAL - Vitals Vital signs reviewed: Yes - General General: Alert and oriented X 3, No acute distress - HEENT HEENT: PERRL, EOMI, Other (There is a laceration in the left occipital scalp with [address], removed during exam, no evidence of infection or dehiscence.) - Neck Neck: Supple, no meningeal sign, No bony TTP Results - Vitals Vitals: Vital Signs - 24 hr 11/14/18 17:42 Temperature 36.0 C L Heart Rate 84 Respiratory 20 Rate Blood Pressure 131/85 H O2 Saturation 96 Oxygen O2 Source Room air Departure - Departure Disposition: 01 Home, Self Care Clinical Impression: Removal of staple Condition: Good Record reviewed to determine appropriate education?: Yes Instructions: ED Stap Removal No Complication
== END 2018-11-14 18:22 | disposition home or self-care (01) ==
LOC: ED 17:33
DX: S01.01XD Laceration without foreign body of scalp, subsequent encounter (principal); X58.XXXD Exposure to other specified factors, subsequent encounter; E78.00 Pure hypercholesterolemia, unspecified
CPT/HCPCS: 99282

== ENCOUNTER 2018-11-30 11:30 | Outpatient (CLI) | payer MEDICARE, MEDICAID ==
[2018-11-30 19:38] LABS: BASOPHILS # (AUTO) 0.1 10^3/uL (0.0-0.1); BASOPHILS % (AUTO) 0.6 %; EOSINOPHILS % (AUTO) 0.4 %; HGB - HEMOGLOBIN 13.9 g/dL (12.0-16.0); LYMPHOCYTES # (AUTO) 1.8 10^3/uL (1.5-3.5); LYMPHOCYTES % (AUTO) 14.5 %; MEAN CORPUSCULAR HEMOGLOBIN 26.5 pg (27.0-31.0); MEAN CORPUSCULAR HGB CONC 31.4 g/dL (32.0-36.0); MEAN CORPUSCULAR VOLUME 84.4 fL (81.0-99.0); MEAN PLATELET VOLUME 8.2 fL (7.9-10.8); MONOCYTES # (AUTO) 0.7 10^3/uL (0.0-1.0); MONOCYTES % (AUTO) 5.8 %; NEUTROPHILS # (AUTO) 9.9 10^3/uL (1.5-6.6); NEUTROPHILS % (AUTO) 78.7 %; PLT - PLATELET COUNT 286 10^3/uL (130-450); RED BLOOD COUNT 5.26 10^6/uL (4.20-5.40); RED CELL DISTRIBUTION WIDTH 15.3 % (12.0-15.0); WHITE BLOOD COUNT 12.6 x10^3/uL (4.8-10.8)
[2018-11-30 20:27] LABS: ALBUMIN 5.1 g/dL (3.2-5.5); ALBUMIN/GLOBULIN RATIO 1.4 (1.0-2.2); BILIRUBIN,TOTAL 0.3 mg/dL (0.2-1.0); CALCIUM 9.9 mg/dL (8.5-10.3); MAGNESIUM 2.2 mg/dL (1.7-2.8); TOTAL PROTEIN 8.8 g/dL (6.7-8.2)
== END 2018-11-30 11:31 | disposition home or self-care (01) ==
LOC: LAB.WCP 11:30
PROVIDERS: ATTEND Physician Assistant
DX: E87.6 Hypokalemia (principal)
CPT/HCPCS: 36415; 80053; 83735; 85025